=== PATIENT | female | born 1980 | race Caucasian/White ===

== ENCOUNTER → 2016-06-11 | Day surgery (SDC) | payer OTHER ==
[2016-05-10 08:22] VITALS: Ht 162.6 cm; Wt 61.4 kg
[~2016-06-11] VITALS: Ht 162.6 cm; Wt 61.4 kg
[~2016-06-11] MED LIST: DIAZ-165 PO; FAMO20TA9 PO; LIDOCAINE HCL 2% 2 ML VIAL (20MG/ML) ONE; MIDAZOLAM HCL 1 MG/ML 2ML VIAL ONE; OMEP20CA9 PO; ONDANSETRON INJ 2 MG/ML 2 ML VIAL ONE; OXYC-57 PO; PRLSR20 PO; PROPOFOL IV EMULSION 10 MG/ML 20 ML VIAL IV ONE; SODIUM CHLORIDE 0.9% 500ML 500 ML IV ONE
--- NOTE | 2016-06-11 13:08 | Endo History and Physical ---
History & Physical Date of Service: Jun 11, 2016. Chief Complaint: Ab discomfort Referring Physician: Dr Alegria History of Present Illness 36 yo CF who presents for EGD secondary to abdominal discomfort. Past Surgical History Hx Cardiac Surgery: No Hx Internal Defibrillator: No Hx Pacemaker: No Hx Abdominal Surgery: Yes (TUBAL LIGATIONS) Hx Post-Op Nausea and Vomiting: No Hx Cancer Surgery: No Hx Thoracic Surgery: No Hx Orthopedic: No Hx Urinary Tract Surgery: No Social History Smoking Status: Never Smoker Hx Substance Use: No Hx Alcohol Use: Yes (SOCIALLY) Allergies Coded Allergies: Reyes (Verified Allergy, Unknown, HIVES, BREATHING PROBLEMS, 05/10/16) Naproxen (Verified Allergy, Unknown, DIFFICULTY BREATHING, 05/10/16) Current Medications Reported Home Medications Medications Dose Route/Sig Max Daily Dose Days Date Category Prilosec (Omeprazole) 20 Mg Capcr 20 Mg PO BID 05/10/16 Reported Vital Signs Weight (Kilograms): 61.36 Height (Feet): 5 Height (Inches): 4 Date Time Temp Pulse Resp B/P Pulse Ox O2 Delivery O2 Flow Rate FiO2 06/11/16 12:00 36.7 67 16 103/61 100 Room Air Physical Exam General Appearance: WD/WN, no apparent distress Respiratory/Chest: Auscultation: breath sounds normal Cardiovascular: Heart Auscultation: RRR Abdomen: Bowel Sounds: normal Inspection & Palpation: soft, non-distended, no tenderness, guarding & rebound Assessment and Plan Assessment: 36 yo CF who presents for EGD secondary to abdominal discomfort. Plan: Proceed with EGD.
--- NOTE | 2016-06-11 13:20 | Discharge Instructions ---
Endoscopy Patient Instructions Date / Procedure(s) Performed Jun 11, 2016. EGD Allergy Information Coded Allergies: Reyes (Verified Allergy, Unknown, HIVES, BREATHING PROBLEMS, 05/10/16) Naproxen (Verified Allergy, Unknown, DIFFICULTY BREATHING, 05/10/16) Discharge Date / Findings Jun 11, 2016. Gastritis s/p biopsies Medication Instructions OK to resume all medications today as prescribed Reported Home Medications Medications Dose Route/Sig Max Daily Dose Days Date Category Prilosec (Omeprazole) 20 Mg Capcr 20 Mg PO BID 05/10/16 Reported Provider Instructions Activity Restrictions - No exercising or heavy lifting for 24 hours. - Do not drink alcohol the day of the procedure. - Do not drive a car or operate machinery until the day after the procedure. - Do not make any important decisions or sign important papers in 24 hours after the procedure. Following Day: - Return to full activity which may include returning to work/school. Diet Start your diet with liquids and light foods (jello, soup, juice, toast). Then eat your usual diet if not nauseated. Treatment For Common After Affects For mild abdominal pain, bloating, or excessive gas: - Rest - Eat lightly - Lie on right side Follow-Up Information Follow-up with Dr Alegria as scheduled Anesthesia Information What You Should Know You have had a procedure that required some medicine to reduce anxiety and discomfort. This treatment is called moderate sedation. After receiving the treatment, you may be sleepy, but you will be able to breathe on your own. The effects of the treatment may last for several hours. Follow these instructions along with Activity/Diet recommendations noted above: * Do NOT do anything where dizziness or clumsiness would be dangerous. * Rest quietly at home today, then you can be up and about tomorrow. * Have a responsible person stay with you the rest of today. * You may have had an I.V. today. If so, you may take the dressing off later today. Recommendations Call your doctor if: * Trouble breathing * Continuous vomiting for more than 24 hours * Temperature above 101 degrees * Severe abdominal pain or bloating * Pain not relieved by pain medicine ordered * There is increased drainage or redness from any incision * A large amount of rectal bleeding greater than 2-3 tablespoons. (If you had a polyp/s removed or have hemorrhoids, a small amount of blood - from the rectum is to be expected.) * You have any unanswered questions or concerns. IN THE EVENT OF A SERIOUS EMERGENCY, GO TO THE NEAREST EMERGENCY ROOM Your discharge instructions were prepared by provider Adam Paniagua. Patient Instructions Signature Page Maria D Marquis Patient (or Guardian) Signature/Date: I have read and understand the instructions given to me by my caregivers. Caregiver/RN/Doctor Signature/Date: The above-named patient and/or guardian has received patient instructions on this date. + Original Patient Signature Page (only) stays with chart. Please make copy for patient.
--- NOTE | 2016-06-11 13:27 | GI REPORT ---
Procedure Date: 06/11/2016 12:56 PM Procedure: Upper GI endoscopy Indications: Epigastric abdominal pain Medicines: Monitored Anesthesia Care Complications: No immediate complications. Estimated Blood Loss: Estimated blood loss: none. Procedure: Pre-Anesthesia Assessment: - Prior to the procedure, a History and Physical was performed, and patient medications and allergies were reviewed. The patient's tolerance of previous anesthesia was also reviewed. The risks and benefits of the procedure and the sedation options and risks were discussed with the patient. All questions were answered, and informed consent was obtained. Prior Anticoagulants: The patient has taken no previous anticoagulant or antiplatelet agents. ASA Grade Assessment: II - A patient with mild systemic disease. After reviewing the risks and benefits, the patient was deemed in satisfactory condition to undergo the procedure. After obtaining informed consent, the endoscope was passed under direct vision. Throughout the procedure, the patient's blood pressure, pulse, and oxygen saturations were monitored continuously. The scope was introduced through the mouth, and advanced to the second part of duodenum. The upper GI endoscopy was accomplished without difficulty. The patient tolerated the procedure well. The upper GI endoscopy was accomplished without difficulty. The patient tolerated the procedure well. Findings: The esophagus was normal. Localized mild inflammation characterized by erythema was found in the gastric antrum. Biopsies were taken with a cold forceps for histology. The examined duodenum was normal. Impression: - Normal esophagus. - Gastritis. Biopsied. - Normal examined duodenum. Recommendation: - Resume previous diet. - Continue present medications. - Await pathology results. - Return to primary care physician as previously scheduled. Adam Paniagua DO 06/11/2016 1:26:15 PM This report has been signed electronically. Note Initiated On: 06/11/2016 12:56 PM I attest to the content of the Intraoperative Record and orders documented therein, exceptions below
--- NOTE | 2016-06-11 14:04 | Anesthesiology Progress Note ---
Anesthesia Post Op Note Date & Time Jun 11, 2016 at 14:03 Vital Signs Pain Intensity: 0 Vital Signs Past 12 Hours Date Time Temp Pulse Resp B/P Pulse Ox O2 Delivery O2 Flow Rate FiO2 06/11/16 13:36 61 16 102/57 100 Room Air 06/11/16 13:21 65 16 115/60 100 Room Air 06/11/16 12:00 36.7 67 16 103/61 100 Room Air Notes Mental Status: alert / awake / arousable, participated in evaluation Pt Amnestic to Procedure: Yes Nausea / Vomiting: adequately controlled Pain: adequately controlled Airway Patency, RR, SpO2: stable & adequate BP & HR: stable & adequate Hydration State: stable & adequate Anesthetic Complications: no major complications apparent
[2016-06-11 14:09] VITALS: BP 104/76; PULSE 70; O2SAT 98
== END | disposition home or self-care (01) ==
LOC: C.GI 11:19
PROVIDERS: ATTEND Internal Medicine
DX: R10.13 Epigastric pain (principal); K29.70 Gastritis, unspecified, without bleeding

== ENCOUNTER 2016-11-16 18:27 | Emergency (ER) | payer OTHER ==
[~2016-11-16] VITALS: Ht 162.6 cm; Wt 62.3 kg
[~2016-11-16 18:27] MED LIST changes: -DIAZ-165 PO; -FAMO20TA9 PO; -LIDOCAINE HCL 2% 2 ML VIAL (20MG/ML) ONE; -MIDAZOLAM HCL 1 MG/ML 2ML VIAL ONE; -OMEP20CA9 PO; -ONDANSETRON INJ 2 MG/ML 2 ML VIAL ONE; -OXYC-57 PO; -PROPOFOL IV EMULSION 10 MG/ML 20 ML VIAL IV ONE; -SODIUM CHLORIDE 0.9% 500ML 500 ML IV ONE
[2016-11-16 18:29] VITALS: TEMP 36.6; Ht 162.6 cm; Wt 62.3 kg
--- NOTE | 2016-11-16 19:16 | EMERGENCY ROOM VISIT NOTE ---
History Report prepared by Rebecca: Sivan Vidal Under the Supervision of: Eliza MeraO. First contact with patient: 18:47 Chief Complaint: DIZZY Stated Complaint: DIZZY History of Present Illness The patient is a 36 year old female who presents to the Emergency Room with complaints of worsening dizziness beginning today. Per per diem interpreter, the patient also reports having blurry vision, diaphoresis, and that the top of her head is burning. She also complains of intermittent chest pain which feels like heartburn. She reports that she has had several episodes with these symptoms over the last few months. The patient reports that she has these symptoms when she starts to drive for more than 10 minutes. The symptoms last for the duration of car rides and she reports that she is fine when the drive is over. She states that she feels as if she is in a daydream, but that she is not tired. The patient also reports having headaches and that she has anxiety. She reports having a tingly sensation in her left eye. Pt denies fevers, shortness of breath, nausea, vomiting, diarrhea, pain with urination, and melena. No hx of migraines. No hx of trauma. Source of History: patient Onset: today Position: other (global) Quality: other (dizziness) Associated Symptoms: + headache, + chest pain, No fevers, No SOB, No nausea , No vomiting, No melena, No diarrhea, No urinary symptoms Note: additional symptom: tingling in left eye Review of Systems See HPI for pertinent positives & negatives. A total of 10 systems reviewed and were otherwise negative. Past Medical & Surgical Medical Problems: (1) Deaf (2) Kidney stones Family History Kidney disease Social History Smoking Status: Never Smoker Alcohol Use: none Marital Status: in relationship Housing Status: lives with family Occupation Status: unemployed Current/Historical Medications No Active Prescriptions or Reported Meds Allergies Coded Allergies: Reyes (Verified Allergy, Unknown, HIVES, BREATHING PROBLEMS, 11/16/16) Naproxen (Verified Allergy, Unknown, DIFFICULTY BREATHING, 11/16/16) Physical Exam Vital Signs Date Time Temp Pulse Resp B/P (MAP) Pulse Ox O2 Delivery O2 Flow Rate FiO2 11/16/16 23:12 64 15 109/65 100 11/16/16 22:14 67 15 121/61 97 Room Air 11/16/16 20:59 53 19 116/73 98 Room Air 11/16/16 20:33 63 11/16/16 18:29 36.6 77 16 131/78 98 Room Air Physical Exam GENERAL: alert, well appearing, well nourished, no distress, non-toxic. Deaf. EYE EXAM: normal conjunctiva, PERRL and EOM's grossly intact OROPHARYNX: no exudate, no erythema, lips, buccal mucosa, and tongue normal and mucous membranes are moist NECK: supple, no nuchal rigidity, no adenopathy, non-tender, no bruits LUNGS: Clear to auscultation. Normal chest wall mechanics. no w/r/r HEART: no murmurs, S1 normal and S2 normal ABDOMEN: abdomen soft, non-tender, normo-active bowel sounds, no masses, no rebound or guarding. BACK: Back is symmetrical on inspection and there is no deformity, no midline tenderness, no CVA tenderness. SKIN: no rashes and no bruising UPPER EXTREMITIES: upper extremities are grossly normal. LOWER EXTREMITIES: No pitting edema. NEURO EXAM: Normal sensorium, cranial nerves II-XII [grossly] intact, normal speech, no [gross] weakness of arms, no [gross] weakness of legs. [No drift. Finger to nose intact. Gross sensation intact.] Medical Decision & Procedures ER Provider Diagnostic Interpretation: Radiology results have been interpreted by the radiologist and reviewed by me. ANGIOGRAPHY HEAD COMBO CLINICAL HISTORY: 36 years-old Female presenting with dizzy, blurred vision mild driving. TECHNIQUE: Multidetector CT angiography of the head was performed after the administration of intravenous contrast. 3-D volumetric and/or maximum intensity projection (MIP) images were subsequently reconstructed for review. IV contrast: 95 mL of Optiray 320. A dose lowering technique was used consistent with the principles of ALARA (as low as reasonably achievable). COMPARISON: None. CT DOSE (mGy.cm): The estimated cumulative dose is 720.55 mGy.cm. FINDINGS: Nitro Worker topogram: Unremarkable. Noncontrast CT head: Ventricles and sulci normal in size. Brain parenchyma normal in appearance with preserved merida-white differentiation. No mass effect or midline shift. No hemorrhage or acute territorial infarct. No extra-axial fluid collection. Paranasal sinuses and mastoid air cells clear. Calvarium intact. CTA head: Anterior circulation including the intracranial portions of the internal carotid arteries, middle and anterior cerebral arteries, and anterior communicating artery patent. Posterior circulation demonstrates codominant vertebral arteries. Basilar artery and bilateral superior cerebellar and posterior cerebral arteries patent. Posterior communicating arteries poorly visualized. No evidence of aneurysm, stenosis, or focal vessel occlusion. Venous structures patent. IMPRESSION: 1. No acute intracranial pathology. 2. No evidence of intracranial aneurysm, stenosis, or focal vessel occlusion. 3. Electronically signed by: Yong Lizarraga M.D. 11/16/2016 9:00 PM Dictated Date/Time: 11/16/2016 8:54 PM CHEST ONE VIEW PORTABLE CLINICAL HISTORY: 36 years-old Female presenting with chest pain. TECHNIQUE: Portable upright AP view of the chest was obtained. COMPARISON: 12/22/2013. FINDINGS: Cardiomediastinal silhouette normal. Lungs and pleural spaces clear. Osseous structures normal. Upper abdomen normal. IMPRESSION: 1. No acute cardiopulmonary disease. Electronically signed by: Yong Lizarraga M.D. 11/16/2016 8:02 PM Dictated Date/Time: 11/16/2016 8:01 PM Laboratory Results 11/16/16 19:40 Red Blood Count 4.30, Mean Corpuscular Volume 92.3, Mean Corpuscular Hemoglobin 29.3, Mean Corpuscular Hemoglobin Concent 31.7, Mean Platelet Volume 9.8, Neutrophils (%) (Auto) 56.3, Lymphocytes (%) (Auto) 37.3, Monocytes (%) (Auto) 5.0, Eosinophils (%) (Auto) 1.0, Basophils (%) (Auto) 0.2, Neutrophils # (Auto) 5.05, Lymphocytes # (Auto) 3.35, Monocytes # (Auto) 0.45, Eosinophils # (Auto) 0.09, Basophils # (Auto) 0.02 11/16/16 19:40 Test 11/16/16 19:40 11/16/16 21:15 White Blood Count 8.98 K/uL (4.8-10.8) Red Blood Count 4.30 M/uL (4.2-5.4) Hemoglobin 12.6 g/dL (12.0-16.0) Hematocrit 39.7 % (37-47) Mean Corpuscular Volume 92.3 fL (80-100) Mean Corpuscular Hemoglobin 29.3 pg (25-34) Mean Corpuscular Hemoglobin Concent 31.7 g/dl (32-36) Platelet Count 262 K/uL (130-400) Mean Platelet Volume 9.8 fL (7.4-10.4) Neutrophils (%) (Auto) 56.3 % Lymphocytes (%) (Auto) 37.3 % Monocytes (%) (Auto) 5.0 % Eosinophils (%) (Auto) 1.0 % Basophils (%) (Auto) 0.2 % Neutrophils # (Auto) 5.05 K/uL (1.4-6.5) Lymphocytes # (Auto) 3.35 K/uL (1.2-3.4) Monocytes # (Auto) 0.45 K/uL (0.11-0.59) Eosinophils # (Auto) 0.09 K/uL (0-0.5) Basophils # (Auto) 0.02 K/uL (0-0.2) RDW Standard Deviation 44.6 fL (36.4-46.3) RDW Coefficient of Variation 13.3 % (11.5-14.5) Immature Granulocyte % (Auto) 0.2 % Immature Granulocyte # (Auto) 0.02 K/uL (0.00-0.02) Prothrombin Time 10.6 SECONDS (9.0-12.0) Prothromb Time International Ratio 1.0 (0.9-1.1) Anion Gap 5.0 mmol/L (3-11) Est Creatinine Clear Calc Drug Dose 82.7 ml/min Estimated GFR () 107.5 Estimated GFR (Non- 92.7 BUN/Creatinine Ratio 20.9 (10-20) Calcium Level 8.6 mg/dl (8.5-10.1) Magnesium Level 2.3 mg/dl (1.8-2.4) Total Bilirubin 0.3 mg/dl (0.2-1) Aspartate Amino Transf (AST/SGOT) 15 U/L (15-37) Alanine Aminotransferase (ALT/SGPT) 23 U/L (12-78) Alkaline Phosphatase 44 U/L (45-117) Troponin I < 0.015 ng/ml (0-0.045) Total Protein 6.9 gm/dl (6.4-8.2) Albumin 3.6 gm/dl (3.4-5.0) Globulin 3.3 gm/dl (2.5-4.0) Albumin/Globulin Ratio 1.1 (0.9-2) Thyroid Stimulating Hormone (TSH) 4.470 uIu/ml (0.300-4.500) Human Chorionic Gonadotropin, Qual NEG (NEG) Urine Color YELLOW Urine Appearance CLEAR (CLEAR) Urine pH 6.0 (4.5-7.5) Urine Specific [place]far[place] 1.031 (1.000-1.030) Urine Protein NEG (NEG) Urine Glucose (UA) NEG (NEG) Urine Ketones NEG (NEG) Urine Occult Blood NEG (NEG) Urine Nitrite NEG (NEG) Urine Bilirubin NEG (NEG) Urine Urobilinogen NEG (NEG) Urine Leukocyte Esterase NEG (NEG) Laboratory results per my review. Medications Administered Medications (Trade) Dose Ordered Sig/Zelda Route Start Time Stop Time Status Last Admin Dose Admin Al Hydroxide/Mg Hydroxide (Maalox Susp) 30 ml NOW STAT PO 11/16/16 19:33 11/16/16 19:36 DC 11/16/16 20:11 30 ML Famotidine (Pepcid Tab) 20 mg NOW ONCE PO 11/16/16 21:45 11/16/16 21:46 DC 11/16/16 22:10 20 MG Acetaminophen (Tylenol Tab) 650 mg NOW STAT PO 11/16/16 21:40 11/16/16 21:42 DC 11/16/16 22:10 650 MG ECG Indication: chest pain Rate (beats per minute): 63 Rhythm: sinus rhythm Findings: no acute ischemic change, other (normal axis, normal intervals, baseline aftifact) Change: no significant change ED Course 1899: The patient was evaluated in room B6. A complete history and physical exam was performed. 1932: Ordered Maalox Susp 30 ml PO. 2129: I went over the results with the patient and she reports that she is still having chest discomfort. 2139: Ordered Tylenol Tab 650 mg PO. 2144: Ordered Famotidine 20 mg PO. 0: Upon reevaluation, the patient is feeling better. I discussed the findings and the treatment plan with the patient. She verbalizes agreement and understanding. She was discharged home. Medical Decision Differential diagnosis: Etiologies such as benign positional vertigo, dehydration, hypovolemia, anemia, tumor, infection, hypoglycemia, electrolyte abnormalities, cardiac sources, intracerebral event, toxicologic, neurologic, as well as others were entertained. Pt well appearing here without symptoms. Labs and imaging reassuring. Discussed with pt f/u with pcp and possibly neurology if sx continue to recur. VS stable. Doubt cva, sah, dissection, dysrhythmia, acs, occult infection, CVS thrombus. Medication Reconcilliation Current Medication List: was personally reviewed by me Blood Pressure Screening Patient's blood pressure: Normal blood pressure Impression Primary Impression: Dizziness Additional Impressions: Chest pain Headache Anxiety Scribe Attestation The scribe's documentation has been prepared under my direction and personally reviewed by me in its entirety. I confirm that the note above accurately reflects all work, treatment, procedures, and medical decision making performed by me. Departure Information Dispostion Home / Self-Care Prescriptions No Active Prescriptions or Reported Meds Referrals No Doctor, Assigned (PCP) Forms HOME CARE DOCUMENTATION FORM, IMPORTANT VISIT INFORMATION Patient Instructions My [facility] Additional Instructions Please follow up with your family doctor next week. Please try to drink more water and stay hydrated. If you have any recurrent episodes, develop worsening or persistent headaches, dizziness, vision changes, worsening or persistent chest pain, vomiting, fevers, trouble breathing, or have any other new concerns , please return the emergency room. Problem Qualifiers Additional Impressions: Chest pain Chest pain type: unspecified Qualified Codes: R07.9 - Chest pain, unspecified Headache Headache type: unspecified Headache chronicity pattern: episodic headache Intractability: not intractable Qualified Codes: R51 - Headache
[2016-11-16] MEDS ORDERED: ALUMINUM/MAGNESIUM SUSP 30 ML UDC PO STA (19:33)
[2016-11-16] MEDS ORDERED: OPTIRAY 320 IV PRN (19:45)
[2016-11-16 20:03] LABS: BASO % 0.2 %; BASO ABS # 0.02 K/uL (0-0.2); COMPLETE YES; HEMATOCRIT 39.7 % (37-47); IG% 0.2 %; LYMPH % 37.3 %; LYMPH ABS # 3.35 K/uL (1.2-3.4); MEAN CELL VOLUME 92.3 fL (80-100); MEAN CORPUSCULAR HEMOGLOBIN 29.3 pg (25-34); MEAN CORPUSCULAR HGB CONC 31.7 g/dl (32-36); MEAN PLATELET VOLUME 9.8 fL (7.4-10.4); NEUT % 56.3 %; PLATELET COUNT 262 K/uL (130-400); WHITE BLOOD COUNT 8.98 K/uL (4.8-10.8)
--- NOTE | 2016-11-16 20:03 | DIAGNOSTIC IMAGING REPORT ---
CHEST ONE VIEW PORTABLE CLINICAL HISTORY: 36 years-old Female presenting with chest pain. TECHNIQUE: Portable upright AP view of the chest was obtained. COMPARISON: 12/22/2013. FINDINGS: Cardiomediastinal silhouette normal. Lungs and pleural spaces clear. Osseous structures normal. Upper abdomen normal. IMPRESSION: 1. No acute cardiopulmonary disease. Electronically signed by: Yong Lizarraga M.D. 11/16/2016 8:02 PM Dictated Date/Time: 11/16/2016 8:01 PM
[2016-11-16 20:14] LABS: PROTHROMBIN TIME (PATIENT) 10.6 SECONDS (9.0-12.0)
[2016-11-16 20:15] LABS: ALT/SGPT 23 U/L (12-78); AST/SGOT 15 U/L (15-37); BLOOD UREA NITROGEN 17 mg/dl (7-18); BUN/CREATININE RATIO 20.9 (10-20); CALCIUM 8.6 mg/dl (8.5-10.1); CARBON DIOXIDE 28 mmol/L (21-32); CHLORIDE 106 mmol/L (98-107); CREATININE 0.82 mg/dl (0.60-1.20); GLUCOSE 80 mg/dl (70-99); MAGNESIUM 2.3 mg/dl (1.8-2.4); SODIUM 139 mmol/L (136-145)
[2016-11-16 20:26] LABS: ALB/GLOB RATIO 1.1 (0.9-2); ALKALINE PHOSPHATASE 44 U/L (45-117)
[2016-11-16 20:36] LABS: PREG INTERNAL NEGATIVE QC NEG CLEAR BACKGROUND; PREG INTERNAL POSITIVE QC POS CONTROL LINE
--- NOTE | 2016-11-16 21:02 | DIAGNOSTIC IMAGING REPORT ---
ANGIOGRAPHY HEAD COMBO CLINICAL HISTORY: 36 years-old Female presenting with dizzy, blurred vision mild driving. TECHNIQUE: Multidetector CT angiography of the head was performed after the administration of intravenous contrast. 3-D volumetric and/or maximum intensity projection (MIP) images were subsequently reconstructed for review. IV contrast: 95 mL of Optiray 320. A dose lowering technique was used consistent with the principles of ALARA (as low as reasonably achievable). COMPARISON: None. CT DOSE (mGy.cm): The estimated cumulative dose is 720.55 mGy.cm. FINDINGS: Warehouse Analyst topogram: Unremarkable. Noncontrast CT head: Ventricles and sulci normal in size. Brain parenchyma normal in appearance with preserved merida-white differentiation. No mass effect or midline shift. No hemorrhage or acute territorial infarct. No extra-axial fluid collection. Paranasal sinuses and mastoid air cells clear. Calvarium intact. CTA head: Anterior circulation including the intracranial portions of the internal carotid arteries, middle and anterior cerebral arteries, and anterior communicating artery patent. Posterior circulation demonstrates codominant vertebral arteries. Basilar artery and bilateral superior cerebellar and posterior cerebral arteries patent. Posterior communicating arteries poorly visualized. No evidence of aneurysm, stenosis, or focal vessel occlusion. Venous structures patent. IMPRESSION: 1. No acute intracranial pathology. 2. No evidence of intracranial aneurysm, stenosis, or focal vessel occlusion. 3. Electronically signed by: Yong Lizarraga M.D. 11/16/2016 9:00 PM Dictated Date/Time: 11/16/2016 8:54 PM
[2016-11-16 21:26] LABS: URINE APPEARANCE CLEAR (CLEAR); URINE BILIRUBIN NEG (NEG); URINE COLOR YELLOW; URINE NITRITE NEG (NEG); URINE SPECIFIC GRAVITY 1.031 (1.000-1.030); UROBILINOGEN NEG (NEG); ZZUR CULT IF INDIC CLEAN CATCH NO
[2016-11-16 21:38] LABS: MANUAL MICROSCOPIC REQUIRED? NO; REVIEW REQ? NO
[2016-11-16] MEDS ORDERED: ACETAMINOPHEN 325 MG TAB PO STA (21:40)
[2016-11-16] MEDS ORDERED: FAMOTIDINE 20 MG TAB PO ONE (21:45)
[2016-11-16 23:12] VITALS: BP 109/65; PULSE 64; O2SAT 100
== END 2016-11-16 23:08 | disposition home or self-care (01) ==
LOC: C.EDB 18:29
DX: R42 Dizziness and giddiness (principal); R07.9 Chest pain, unspecified; R51 Headache; F41.9 Anxiety disorder, unspecified; H91.90 Unspecified hearing loss, unspecified ear; Z87.442 Personal history of urinary calculi; Z84.1 Family history of disorders of kidney and ureter

== ENCOUNTER → 2016-12-18 | Outpatient (CLI) | payer OTHER ==
--- NOTE | 2016-12-19 23:45 | PULMONARY FUNCTION TEST ---
Spirometry is within the limits of normal. Flow volume loops are normal. Following bronchodilators, there was no significant change in function. Lung volumes showed a decrease in residual volume with low normal FRC and TLC. Diffusion is normal at 103% of predicted.
== END | disposition home or self-care (01) ==
LOC: C.RC 12:41
PROVIDERS: ATTEND Physician Assistant
DX: R06.02 Shortness of breath (principal)

== ENCOUNTER 2017-01-15 06:25 | Emergency (ER) | payer OTHER ==
[~2017-01-15] VITALS: Ht 162.6 cm; Wt 62.0 kg
[2017-01-15] MEDS ORDERED: OXYC-57 PO ×2 (06:38)
[2017-01-15] MEDS ORDERED: OMEP20CA9 PO (06:38)
[2017-01-15] MEDS ORDERED: GI COCKTAIL PO STA (06:44)
[2017-01-15] MEDS ORDERED: ONDANSETRON INJ 2 MG/ML 2 ML VIAL IV STA (06:44)
[2017-01-15] MEDS ORDERED: FAMOTIDINE 20 MG TAB PO ONE (06:45)
--- NOTE | 2017-01-15 06:45 | EMERGENCY ROOM VISIT NOTE ---
History Report prepared by Rebecca: Quin Dubois Under the Supervision of: Dr. Juan Elder M.D. First contact with patient: 06:29 Chief Complaint: SHORTNESS OF BREATH Stated Complaint: SHORT OF BREATH History of Present Illness The patient is a 37 year old white female with a past medical history of deafness who presents to the ED with a cc of persistent, central, burning chest pain beginning this morning. Positive shortness of breath, nausea. Negative swelling in lower extremities, vomiting. The patient states that she had cochlear implants on Saturday and states that surgery went well. She states that she developed chest pain this morning and shortness of breath. The patient reports constipation from the oxycodone she was prescribed. She notes abdominal pain as well. The patient states that she has been passing gas from below and burping. She states that she has tried a stool softener. The patient states that she has taken Omeprazole without relief. She denies any alcohol or tobacco use. The patient denies being on any supplemental oxygen at home. She denies any history of blood clots. Source of History: patient Onset: this morning Position: chest (central) Quality: burning Timing: other (persistent) Associated Symptoms: + SOB, + nausea, + abdominal pain, No vomiting Note: Associated symptoms: constipation Review of Systems See HPI for pertinent positives and negatives. A total of ten systems were reviewed and were otherwise negative. Past Medical & Surgical Medical Problems: (1) Deaf (2) Kidney stones Family History Kidney disease Social History Smoking Status: Never Smoker Alcohol Use: none Marital Status: in relationship Housing Status: lives with family Occupation Status: unemployed Current/Historical Medications Scheduled Omeprazole (Prilosec), 20 MG PO QPM Scheduled PRN Diazepam (Valium), 5 MG PO Q6H PRN for Anxiety/Agitation Oxycodone/Acetaminophen 5MG/325MG (Percocet 5MG/325MG), 1 TABLETS PO Q4H PRN for Pain Allergies Coded Allergies: Reyes (Verified Allergy, Unknown, HIVES, BREATHING PROBLEMS, 01/15/17) Naproxen (Verified Allergy, Unknown, DIFFICULTY BREATHING, 01/15/17) Physical Exam Vital Signs Date Time Temp Pulse Resp B/P (MAP) Pulse Ox O2 Delivery O2 Flow Rate FiO2 01/15/17 12:08 87 20 114/64 99 01/15/17 10:28 83 20 131/75 99 11/14/17 08:38 78 16 116/69 01/15/17 07:37 70 20 121/75 98 Room Air 01/15/17 06:49 66 01/15/17 06:46 Room Air 01/15/17 06:46 37.1 84 18 117/84 98 Room Air 01/15/17 06:46 Room Air Physical Exam GENERAL: Awake, alert, well-appearing, NAD HENT: Normocephalic, atraumatic. Cochlear implanted placed behind the right ear EYES: Normal conjunctiva. Sclera non-icteric. NECK: Supple. No nuchal rigidity. FROM. RESPIRATORY: CTAB, no rhonchi, wheezing, crackles CARDIAC: RRR, no MRG ABDOMEN: Soft, NTND, BS+ MSK: No chest wall TTP, no LE edema, erythema or calf pain NEURO: GCS 15, CN 2-12 intact, moves all 4s on command SKIN: No rash or jaundice noted. Medical Decision & Procedures ER Provider Diagnostic Interpretation: X-ray: Per my interpretation, radiologist review. CHEST ONE VIEW PORTABLE HISTORY: 37 years-old Female CHEST PAIN acute atypical chest pain COMPARISON: Chest radiograph 11/16/2016 TECHNIQUE: Portable upright AP view of the chest FINDINGS: Cardiomediastinal and hilar silhouettes are within normal limits. There is no pneumothorax, pleural effusion, focal airspace consolidation or overt pulmonary edema. The bones of the chest are grossly intact. IMPRESSION: No acute cardiopulmonary process. The above report was generated using voice recognition software. It may contain grammatical, syntax or spelling errors. Electronically signed by: Jasper Stallworth M.D. 01/15/2017 7:07 AM Dictated Date/Time: 01/15/2017 7:[address] CT DOSE: 614.27 mGy.cm HISTORY: ?seizure TECHNIQUE: Multiaxial CT images of the head were performed without the use of intravenous contrast. Automated exposure control was utilized for this study. A dose lowering technique was utilized adhering to the principles of ALARA. Comparison: None. Findings: Paranasal sinuses are clear. Right-sided cochlear implant. Small amount of soft tissue gas in the scalp adjacent to the clear implant which suggests recent postoperative change. A few partially opacified right inferior mastoid air cells. The left mastoid air cells are clear. No calvarial fractures. Suboptimal evaluation of the brain due to the metallic artifact from the right-sided cochlear implant. However, there is no definite mass, hematoma, midline shift, acute infarct. The ventricles are normal in size. Impression: 1. Suboptimal evaluation of the brain due to the metallic artifact from the right-sided cochlear implant. However, no definite acute intracranial abnormality. 2. Small amount of gas within the scalp adjacent to the cochlear implant with suggests recent postoperative change. Electronically signed by: Magnus Lei M.D. 01/15/2017 8:51 AM Dictated Date/Time: 01/15/2017 8:47 AM (CHEST FOR PE) ANGIO WITH CT DOSE: 139.22 mGy.cm HISTORY: 37 years-old Female presents with acute chest pain and shortness of breath. TECHNIQUE: Multiple CTA images of the chest were obtained after the intravenous administration of 89 ml Optiray 320. Coronal and sagittal MIPS were obtained from the axial data set and were submitted for review. A dose lowering technique was utilized adhering to the principles of ALARA. COMPARISON: CTA of the chest 12/22/2013. FINDINGS: CTA: Heart is normal in size without pericardial effusion. The thoracic aorta is normal in both course and caliber without aneurysm or dissection. Imaged great vessels appear patent. The pulmonary arterial tree is opacified to the level of the segmental branches. The subsegmental branches are not well seen secondary to respiratory motion. No focal filling defects identified to suggest pulmonary thromboembolic disease. CT CHEST: No dominant thyroid nodule. Minimal residual thymic tissue anterior mediastinum is noted. No pathologic adenopathy about the chest identified. There is no pneumothorax, pleural effusion, focal airspace consolidation or overt pulmonary edema. There is minimal dependent bibasilar atelectasis. Central airways are patent. No acute abnormality of the imaged upper abdomen. Soft tissues are unremarkable. The bones appear intact. IMPRESSION: 1. No acute intrathoracic abnormality, specifically no acute aortic pathology or evidence of pulmonary thromboembolic disease. 2. No lobar airspace consolidation to suggest pneumonia. The above report was generated using voice recognition software. It may contain grammatical, syntax or spelling errors. Electronically signed by: Jasper Stallworth M.D. 01/15/2017 9:23 AM Dictated Date/Time: 01/15/2017 9:18 AM Laboratory Results 01/15/17 07:10 Red Blood Count 4.66, Mean Corpuscular Volume 90.8, Mean Corpuscular Hemoglobin 30.5, Mean Corpuscular Hemoglobin Concent 33.6, Mean Platelet Volume 9.2, Neutrophils (%) (Auto) 79.7, Lymphocytes (%) (Auto) 14.6, Monocytes (%) (Auto) 5.3, Eosinophils (%) (Auto) 0.2, Basophils (%) (Auto) 0.1, Neutrophils # (Auto) 7.65, Lymphocytes # (Auto) 1.40, Monocytes # (Auto) 0.51, Eosinophils # (Auto) 0.02, Basophils # (Auto) 0.01 01/15/17 07:10 Test 01/15/17 07:10 White Blood Count 9.60 K/uL (4.8-10.8) Red Blood Count 4.66 M/uL (4.2-5.4) Hemoglobin 14.2 g/dL (12.0-16.0) Hematocrit 42.3 % (37-47) Mean Corpuscular Volume 90.8 fL (80-100) Mean Corpuscular Hemoglobin 30.5 pg (25-34) Mean Corpuscular Hemoglobin Concent 33.6 g/dl (32-36) Platelet Count 287 K/uL (130-400) Mean Platelet Volume 9.2 fL (7.4-10.4) Neutrophils (%) (Auto) 79.7 % Lymphocytes (%) (Auto) 14.6 % Monocytes (%) (Auto) 5.3 % Eosinophils (%) (Auto) 0.2 % Basophils (%) (Auto) 0.1 % Neutrophils # (Auto) 7.65 K/uL (1.4-6.5) Lymphocytes # (Auto) 1.40 K/uL (1.2-3.4) Monocytes # (Auto) 0.51 K/uL (0.11-0.59) Eosinophils # (Auto) 0.02 K/uL (0-0.5) Basophils # (Auto) 0.01 K/uL (0-0.2) RDW Standard Deviation 44.2 fL (36.4-46.3) RDW Coefficient of Variation 13.5 % (11.5-14.5) Immature Granulocyte % (Auto) 0.1 % Immature Granulocyte # (Auto) 0.01 K/uL (0.00-0.02) Prothrombin Time 10.7 SECONDS (9.0-12.0) Prothromb Time International Ratio 1.0 (0.9-1.1) Activated Partial Thromboplast Time 27.2 SECONDS (21.0-31.0) Partial Thromboplastin Ratio 1.0 D-Dimer 930 ug/L FEU (0-500) Anion Gap 9.0 mmol/L (3-11) Est Creatinine Clear Calc Drug Dose 85.1 ml/min Estimated GFR () 111.6 Estimated GFR (Non- 96.3 BUN/Creatinine Ratio 10.4 (10-20) Calcium Level 9.5 mg/dl (8.5-10.1) Total Bilirubin 0.7 mg/dl (0.2-1) Direct Bilirubin 0.2 mg/dl (0-0.2) Aspartate Amino Transf (AST/SGOT) 37 U/L (15-37) Alanine Aminotransferase (ALT/SGPT) 38 U/L (12-78) Alkaline Phosphatase 53 U/L (45-117) Troponin I < 0.015 ng/ml (0-0.045) Pro-B-Type Natriuretic Peptide 97 pg/ml (0-450) Total Protein 8.3 gm/dl (6.4-8.2) Albumin 4.2 gm/dl (3.4-5.0) Lipase 144 U/L (73-393) Laboratory results reviewed by me Medications Administered Medications (Trade) Dose Ordered Sig/Zelda Route Start Time Stop Time Status Last Admin Dose Admin Ondansetron HCl (Zofran Inj) 4 mg NOW STAT IV 01/15/17 06:44 01/15/17 06:46 DC 01/15/17 07:17 4 MG Famotidine (Pepcid Tab) 20 mg NOW ONCE PO 01/15/17 06:45 01/15/17 06:46 DC 01/15/17 07:14 20 MG Al Hydroxide/Mg Hydroxide (Maalox Susp) 30 ml STK-MED ONCE .ROUTE 01/15/17 07:06 01/15/17 07:07 DC 01/15/17 07:15 30 ML Lidocaine HCl (Viscous Lidocaine 2% Soln) 20 ml STK-MED ONCE .ROUTE 01/15/17 07:06 01/15/17 07:07 DC 01/15/17 07:15 20 ML Acetaminophen (Tylenol Tab) 1,000 mg NOW STAT PO 01/15/17 08:01 01/15/17 08:02 DC 01/15/17 08:11 1,000 MG Diazepam (Valium Tab) 5 mg NOW ONCE PO 01/15/17 10:15 01/15/17 10:16 DC 01/15/17 10:25 5 MG ECG Indication: chest pain, SOB/dyspnea Rate (beats per minute): 65 Rhythm: normal sinus Findings: LBBB, no ectopy, other (borderline wide QRS, T wave flattening in lead 3 and AVF, no other STS changes) Comparison ECG Date: November2016 Change: no significant change ED Course 0633: The patient was evaluated in room A2. A complete history and physical exam was performed. 0644: Ordered GI Cocktail 24 ml PO, Zofran Inj 4 mg IV, Pepcid Tab 20 mg PO. 0801: Per nursing staff, the patient is still experiencing a burning pain in her chest. Ordered Tylenol Tab 1000 mg PO. 1000: I reevaluated the patient and she is resting. I discussed the test results with her and I discussed the treatment plan. 1015: Ordered Valium Tab 5 mg PO. 1211: I reevaluated the patient and she is doing well. I discussed all the exam findings with her and I discussed the treatment plan. She verbalized complete understanding and agreement. She is ready to go home. Medical Decision Differential diagnosis: Etiologies such as cardiac ischemia, aortic dissection, pulmonary embolism, pneumonia, pneumothorax, musculoskeletal, infections, pericarditis, myocarditis , esophageal rupture, gastrointestinal, as well as others were entertained. The patient is a 37 year old white female with a past medical history of deafness who presents to the ED with a cc of persistent, central, burning chest pain beginning this morning. Patient was seen and evaluated at the bedside. Patient states that she has been having some intermittent chest pains been ongoing for about 2 days. Patient describes it as burning in quality is nonexertional in nature. Patient states that she has had some productive cough. She denies any fevers or chills or other infectious symptoms. Patient states she has been afraid to eat as this may make it worse. Patient denies any lower abdominal pain. Patient did have her recent cochlear implant procedure that was done at [facility] on Saturday. Patient states she has been up and ambulatory without issues. Patient does not use any oxygen at home. She denies any history of DVT or PE. Patient has no lower extremity swelling. Patient did have blood work, EKG, chest x-ray and d-dimer completed. Patient was also given symptomatic treatment with medications. Patient's EKG was unchanged from priors. It was nonischemic. Patient's blood work was fairly unremarkable. Patient did have a pulse score 1 inch a d-dimer was ordered. Patient d-dimer was elevated. A CTA of the chest rule out PE was ordered. Patient had a normal BNP and troponin. Patient was given an additional round of medicines to help with her discomfort. Patient CTA of the chest did not show any acute abnormality. Patient was informed of this findings at length. Patient states that she was feeling scared and didn't want to go home. We discussed that she would have try to ambulate here in addition to tried to take something by mouth. Patient was able to accomplish things that would be sufficient to perform her ADLs at home. Patient was able tolerate by mouth. Patient was given a prescription for home. Patient was feeling improved. Less likely ACS and given her improvement in her symptoms this may be related to some anxiety. Patient was deemed suitable for outpatient follow-up and treatment. Patient was given strict follow-up, discharge, and return precautions. All questions were answered. Patient was deemed suitable for outpatient follow-up at this time. Patient agreed with the plan of care and was safely discharged home. Medication Reconcilliation Current Medication List: was personally reviewed by me Impression Primary Impression: SOB (shortness of breath) Additional Impressions: Chest pain Anxiety Scribe Attestation The scribe's documentation has been prepared under my direction and personally reviewed by me in its entirety. I confirm that the note above accurately reflects all work, treatment, procedures, and medical decision making performed by me. Departure Information Dispostion Home / Self-Care Prescriptions Diazepam (Valium) 5 Mg Tab 5 MG PO Q6H Y for Anxiety/Agitation, #8 TAB Prov: Juan Elder M.D. 01/15/17 Referrals No Doctor, Assigned (PCP) Forms HOME CARE DOCUMENTATION FORM, IMPORTANT VISIT INFORMATION Patient Instructions ED Dyspnea Shortness of Breath, My [facility], Shortness of Breath Control Stress Additional Instructions Please return to the emergency department if you have worsening or recurrent symptoms not amenable to at-home treatment. Please call for a follow-up appointment with her primary care physician. Please take your medications as prescribed. If you have other concerns and/or complaints please feel free to also call your primary care physician's office or return the ED for further evaluation, management, and treatment. Please no longer use your oxycodone, especially if you take the valium as it can cause respiratory issues including not being able to breathe. Continue good hydration. You may take 600 mg Ibuprofen every 6 hours as needed for pain with food for no more than 2 consecutive days. You may take tylenol 1000 mg every 6 hours as needed for pain. You may take motrin and tylenol separately or at the same time. Take your medications as prescribed. You have been examined and treated today on an emergency basis only. This is not a substitute for, or an effort to provide, complete comprehensive medical care. It is impossible to recognize and treat all injuries or illnesses in a single emergency department visit. It is therefore important that you follow up closely with [facility], your PCP, and/or your specialist(s). Call as soon as possible for an appointment. Thank you for your time and consideration. I look forward to speaking with you again soon. Please don't hesitate to call us if you have any questions. Problem Qualifiers Additional Impressions: Chest pain Chest pain type: unspecified Qualified Codes: R07.9 - Chest pain, unspecified
[2017-01-15 06:46] VITALS: TEMP 37.1; Ht 162.6 cm; Wt 62.0 kg
[2017-01-15] MEDS ORDERED: ALUMINUM/MAGNESIUM SUSP 30 ML UDC ONE (07:06)
[2017-01-15] MEDS ORDERED: LIDOCAINE HCL 2% VISC SOLN 20 ML UDC ONE (07:06)
--- NOTE | 2017-01-15 07:08 | DIAGNOSTIC IMAGING REPORT ---
CHEST ONE VIEW PORTABLE HISTORY: 37 years-old Female CHEST PAIN acute atypical chest pain COMPARISON: Chest radiograph 11/16/2016 TECHNIQUE: Portable upright AP view of the chest FINDINGS: Cardiomediastinal and hilar silhouettes are within normal limits. There is no pneumothorax, pleural effusion, focal airspace consolidation or overt pulmonary edema. The bones of the chest are grossly intact. IMPRESSION: No acute cardiopulmonary process. The above report was generated using voice recognition software. It may contain grammatical, syntax or spelling errors. Electronically signed by: Jasper Stallworth M.D. 01/15/2017 7:07 AM Dictated Date/Time: 01/15/2017 7:06 AM
[2017-01-15 07:23] LABS: BASO % 0.1 %; BASO ABS # 0.01 K/uL (0-0.2); COMPLETE YES; EOS % 0.2 %; HEMATOCRIT 42.3 % (37-47); IG% 0.1 %; LYMPH % 14.6 %; MEAN CELL VOLUME 90.8 fL (80-100); MEAN CORPUSCULAR HEMOGLOBIN 30.5 pg (25-34); MEAN CORPUSCULAR HGB CONC 33.6 g/dl (32-36); MEAN PLATELET VOLUME 9.2 fL (7.4-10.4); MONO % 5.3 %; NEUT % 79.7 %; PLATELET COUNT 287 K/uL (130-400); RED BLOOD COUNT 4.66 M/uL (4.2-5.4)
[2017-01-15 07:43] LABS: ALT/SGPT 38 U/L (12-78); AST/SGOT 37 U/L (15-37); BLOOD UREA NITROGEN 8 mg/dl (7-18); BUN/CREATININE RATIO 10.4 (10-20); CALCIUM 9.5 mg/dl (8.5-10.1); CARBON DIOXIDE 28 mmol/L (21-32); CHLORIDE 103 mmol/L (98-107); CREATININE 0.79 mg/dl (0.60-1.20); GLUCOSE 85 mg/dl (70-99); POTASSIUM 3.7 mmol/L (3.5-5.1); SODIUM 140 mmol/L (136-145)
[2017-01-15 07:49] LABS: ALKALINE PHOSPHATASE 53 U/L (45-117)
[2017-01-15] MEDS ORDERED: ACETAMINOPHEN 500 MG TAB PO STA (08:01)
[2017-01-15 08:04] LABS: PROTHROMBIN TIME (PATIENT) 10.7 SECONDS (9.0-12.0)
[2017-01-15] MEDS ORDERED: OPTIRAY 320 IV PRN (08:30)
--- NOTE | 2017-01-15 09:21 | DIAGNOSTIC IMAGING REPORT ---
HEAD CT NONCONTRAST CT DOSE: 614.27 mGy.cm HISTORY: ?seizure TECHNIQUE: Multiaxial CT images of the head were performed without the use of intravenous contrast. Automated exposure control was utilized for this study. A dose lowering technique was utilized adhering to the principles of ALARA. Comparison: None. Findings: Paranasal sinuses are clear. Right-sided cochlear implant. Small amount of soft tissue gas in the scalp adjacent to the clear implant which suggests recent postoperative change. A few partially opacified right inferior mastoid air cells. The left mastoid air cells are clear. No calvarial fractures. Suboptimal evaluation of the brain due to the metallic artifact from the right-sided cochlear implant. However, there is no definite mass, hematoma, midline shift, acute infarct. The ventricles are normal in size. Impression: 1. Suboptimal evaluation of the brain due to the metallic artifact from the right-sided cochlear implant. However, no definite acute intracranial abnormality. 2. Small amount of gas within the scalp adjacent to the cochlear implant with suggests recent postoperative change. Electronically signed by: Magnus Lei M.D. 01/15/2017 8:51 AM Dictated Date/Time: 01/15/2017 8:47 AM
--- NOTE | 2017-01-15 09:24 | DIAGNOSTIC IMAGING REPORT ---
(CHEST FOR PE) ANGIO WITH CT DOSE: 139.22 mGy.cm HISTORY: 37 years-old Female presents with acute chest pain and shortness of breath. TECHNIQUE: Multiple CTA images of the chest were obtained after the intravenous administration of 89 ml Optiray 320. Coronal and sagittal MIPS were obtained from the axial data set and were submitted for review. A dose lowering technique was utilized adhering to the principles of ALARA. COMPARISON: CTA of the chest 12/22/2013. FINDINGS: CTA: Heart is normal in size without pericardial effusion. The thoracic aorta is normal in both course and caliber without aneurysm or dissection. Imaged great vessels appear patent. The pulmonary arterial tree is opacified to the level of the segmental branches. The subsegmental branches are not well seen secondary to respiratory motion. No focal filling defects identified to suggest pulmonary thromboembolic disease. CT CHEST: No dominant thyroid nodule. Minimal residual thymic tissue anterior mediastinum is noted. No pathologic adenopathy about the chest identified. There is no pneumothorax, pleural effusion, focal airspace consolidation or overt pulmonary edema. There is minimal dependent bibasilar atelectasis. Central airways are patent. No acute abnormality of the imaged upper abdomen. Soft tissues are unremarkable. The bones appear intact. IMPRESSION: 1. No acute intrathoracic abnormality, specifically no acute aortic pathology or evidence of pulmonary thromboembolic disease. 2. No lobar airspace consolidation to suggest pneumonia. The above report was generated using voice recognition software. It may contain grammatical, syntax or spelling errors. Electronically signed by: Jasper Stallworth M.D. 01/15/2017 9:23 AM Dictated Date/Time: 01/15/2017 9:18 AM
[2017-01-15] MEDS ORDERED: DIAZEPAM 5MG TAB PO ONE (10:15)
[2017-01-15] MEDS ORDERED: DIAZ-165 PO (12:06)
[2017-01-15 12:08] VITALS: BP 114/64; PULSE 87; O2SAT 99
== END 2017-01-15 12:21 | disposition home or self-care (01) ==
LOC: EDBD 06:25 → C.EDA 06:29
DX: R06.02 Shortness of breath (principal); R07.9 Chest pain, unspecified; F41.9 Anxiety disorder, unspecified; Z87.442 Personal history of urinary calculi; Z79.899 Other long term (current) drug therapy; Z88.8 Allergy status to other drugs, medicaments and biological substances; Z91.018 Allergy to other foods; Z82.49 Family history of ischemic heart disease and other diseases of the circulatory system

== ENCOUNTER 2017-02-05 10:04 | Emergency (ER) | payer OTHER ==
[~2017-02-05 10:04] MED LIST changes: +DIAZ-165 PO; +OMEP20CA9 PO; +OXYC-57 PO; -PRLSR20 PO
[2017-02-05 10:07] VITALS: TEMP 36.5
[2017-02-05] MEDS ORDERED: DiphenhydrAMINE HCL 50 MG/ML VIAL IV STA (11:05)
[2017-02-05] MEDS ORDERED: FAMOTIDINE 20MG/5ML IV PUSH IV STA (11:05)
[2017-02-05] MEDS ORDERED: GI COCKTAIL PO STA (11:05)
[2017-02-05] MEDS ORDERED: SODIUM CHLORIDE 0.9% 1000ML 1,000 ML IV STA (11:05)
[2017-02-05] MEDS ORDERED: ONDANSETRON INJ 2 MG/ML 2 ML VIAL IV STA (11:20)
[2017-02-05 11:25] VITALS: O2SAT 100
[2017-02-05] MEDS ORDERED: LIDOCAINE HCL 2% VISC SOLN 20 ML UDC ONE (11:36)
[2017-02-05] MEDS ORDERED: ALUMINUM/MAGNESIUM SUSP 30 ML UDC ONE (11:36)
[2017-02-05 11:43] LABS: BASO % 0.2 %; BASO ABS # 0.02 K/uL (0-0.2); COMPLETE YES; EOS % 0.5 %; HEMATOCRIT 39.8 % (37-47); IG% 0.2 %; LYMPH % 27.4 %; LYMPH ABS # 2.31 K/uL (1.2-3.4); MEAN CORPUSCULAR HEMOGLOBIN 30.5 pg (25-34); MEAN CORPUSCULAR HGB CONC 33.9 g/dl (32-36); MEAN PLATELET VOLUME 9.6 fL (7.4-10.4); MONO % 4.6 %; NEUT % 67.1 %; PLATELET COUNT 243 K/uL (130-400); RED BLOOD COUNT 4.42 M/uL (4.2-5.4); WHITE BLOOD COUNT 8.44 K/uL (4.8-10.8)
--- NOTE | 2017-02-05 11:45 | EMERGENCY ROOM VISIT NOTE ---
History Report prepared by Rebecca: Tess Barbosa Under the Supervision of: Dr. Alex Piper M.D. First contact with patient: 10:24 Chief Complaint: EAR PAIN Stated Complaint: RINGING EAR, NERVOUS, HEARTBURN History of Present Illness The patient is a 37 year old female with hearing impairment who presents to the Emergency Room with complaints of constant ringing in her left ear since her cochlear implant surgery in her right ear on January 11, 2017. An retail asset protection specialist was used to translate for the patient. She also notes a burning sensation in her epigastric region that radiates to both arms and neck, causing loss of sleep and numbness in arms bilaterally. She reports informing her PCP of her heartburn symptoms before the surgery, though the symptoms have worsened. Her PCP prescribed omeprazole, though it has not improved her symptoms. She stopped taking the medication after a week of use. She has also notified her ENT specialist of the ringing in her ear, noting that the ringing was normal s/p surgery, though she feels the ringing is abnormal for her. The ringing is primarily in her left ear, though radiates to her right ear. She notes the ear ringing has been constant since her surgery. She notes feeling nauseous, productive cough with sputum, shortness of breath, dizziness, though does not feel as if the room is spinning. She feels anxious, agitated, and unfocused. She notes that she cannot seem to focus her eyes. She notes having a left hearing aid since she was [age] years old and she has had to remove it due to the ringing. She does not know if the cochlear implant is causing the ringing in her ear. She states the ringing in her ear is "driving me crazy." She will see her ENT specialist tomorrow for a follow up. Lastly, she notes being prescribed vallum for anxiety, which caused her to be confused. She rates her pain a 3/10 in severity. Source of History: patient Onset: January 11, 2017 Position: ear (bilateral) Symptom Intensity: 3/10 Quality: other (ringing "driving me crazy") Timing: constant Associated Symptoms: + cough (productive cough with sputum), + SOB, + nausea , + abdominal pain (epigastric region), + numbness (arms bilaterally) Note: She notes ringing in her left ear, that radiates to her right ear. She notes loss of sleep, dizziness, though does not feel the room spinning. She notes feeling anxious, agitated and unfocused. Review of Systems See HPI for pertinent positives and negatives. A total of ten systems were reviewed and were otherwise negative. Past Medical & Surgical Medical Problems: (1) Deaf (2) Kidney stones (3) Uses hearing aid Surgical Problems: (1) History of cochlear implant Family History Kidney disease Social History Smoking Status: Never Smoker Alcohol Use: none Drug Use: none Marital Status: in relationship Housing Status: lives with family Occupation Status: unemployed Current/Historical Medications Scheduled Famotidine (Pepcid), 20 MG PO BID Allergies Coded Allergies: Reyes (Verified Allergy, Unknown, HIVES, BREATHING PROBLEMS, 02/05/17) Naproxen (Verified Allergy, Unknown, DIFFICULTY BREATHING, 02/05/17) Physical Exam Vital Signs Date Time Temp Pulse Resp B/P (MAP) Pulse Ox O2 Delivery O2 Flow Rate FiO2 02/05/17 14:07 74 16 97/59 97 02/05/17 13:00 81 16 111/63 97 Room Air 02/05/17 11:53 101 20 120/81 100 Room Air 02/05/17 11:42 76 02/05/17 11:25 100 Room Air 02/05/17 10:07 36.5 55 20 123/89 96 Room Air Physical Exam GENERAL: Awake, alert, anxious and uncomfortable appearing, in no acute distress HENT: Normocephalic, atraumatic. Oropharynx dry mm otherwise unremarkable. TM clear. EYES: Normal conjunctiva. Sclera non-icteric. NECK: Supple. No nuchal rigidity. FROM. No JVD. RESPIRATORY: Clear to auscultation. CARDIAC: Regular rate, normal rhythm. Extremities warm and well perfused. Pulses equal. ABDOMEN: Soft, non-distended. No rebound or guarding. No masses. Mild epigastric discomfort. Negative Pimentel's sign. No peritoneal signs. RECTAL: Deferred. MUSCULOSKELETAL: Chest examination reveals no tenderness. The back is symmetrical on inspection without obvious abnormality. There is no CVA tenderness to palpation. No joint edema. LOWER EXTREMITIES: Calves are equal size bilaterally and non-tender. No edema. No discoloration. NEURO: Normal sensorium. No sensory or motor deficits noted. SKIN: No rash or jaundice noted. Medical Decision & Procedures ER Provider Diagnostic Interpretation: Radiology results as stated below per my review and radiologist interpretation: SINGLE VIEW CHEST CLINICAL HISTORY: Atypical chest pain. FINDINGS: An AP, portable, upright chest radiograph is compared to chest x-ray and chest CT dated 01/15/2017. The examination is degraded by portable technique and patient rotation. The cardiomediastinal silhouette is unremarkable. The lungs and pleural spaces are clear. No pneumothorax is seen. The bony thorax is grossly intact. IMPRESSION: No active disease in the chest. Electronically signed by: Luis Enrique Enriquez M.D. 02/05/2017 12:37 PM Dictated Date/Time: 02/05/2017 12:37 PM Laboratory Results 02/05/17 11:35 Red Blood Count 4.42, Mean Corpuscular Volume 90.0, Mean Corpuscular Hemoglobin 30.5, Mean Corpuscular Hemoglobin Concent 33.9, Mean Platelet Volume 9.6, Neutrophils (%) (Auto) 67.1, Lymphocytes (%) (Auto) 27.4, Monocytes (%) (Auto) 4.6, Eosinophils (%) (Auto) 0.5, Basophils (%) (Auto) 0.2, Neutrophils # (Auto) 5.66, Lymphocytes # (Auto) 2.31, Monocytes # (Auto) 0.39, Eosinophils # (Auto) 0.04, Basophils # (Auto) 0.02 02/05/17 11:35 Test 02/05/17 11:35 White Blood Count 8.44 K/uL (4.8-10.8) Red Blood Count 4.42 M/uL (4.2-5.4) Hemoglobin 13.5 g/dL (12.0-16.0) Hematocrit 39.8 % (37-47) Mean Corpuscular Volume 90.0 fL (80-100) Mean Corpuscular Hemoglobin 30.5 pg (25-34) Mean Corpuscular Hemoglobin Concent 33.9 g/dl (32-36) Platelet Count 243 K/uL (130-400) Mean Platelet Volume 9.6 fL (7.4-10.4) Neutrophils (%) (Auto) 67.1 % Lymphocytes (%) (Auto) 27.4 % Monocytes (%) (Auto) 4.6 % Eosinophils (%) (Auto) 0.5 % Basophils (%) (Auto) 0.2 % Neutrophils # (Auto) 5.66 K/uL (1.4-6.5) Lymphocytes # (Auto) 2.31 K/uL (1.2-3.4) Monocytes # (Auto) 0.39 K/uL (0.11-0.59) Eosinophils # (Auto) 0.04 K/uL (0-0.5) Basophils # (Auto) 0.02 K/uL (0-0.2) RDW Standard Deviation 43.8 fL (36.4-46.3) RDW Coefficient of Variation 13.3 % (11.5-14.5) Immature Granulocyte % (Auto) 0.2 % Immature Granulocyte # (Auto) 0.02 K/uL (0.00-0.02) Anion Gap 8.0 mmol/L (3-11) Estimated GFR () 103.6 Estimated GFR (Non- 89.4 BUN/Creatinine Ratio 9.4 (10-20) Calcium Level 9.3 mg/dl (8.5-10.1) Total Bilirubin 0.6 mg/dl (0.2-1) Direct Bilirubin 0.2 mg/dl (0-0.2) Aspartate Amino Transf (AST/SGOT) 16 U/L (15-37) Alanine Aminotransferase (ALT/SGPT) 20 U/L (12-78) Alkaline Phosphatase 45 U/L (45-117) Troponin I < 0.015 ng/ml (0-0.045) Total Protein 7.8 gm/dl (6.4-8.2) Albumin 4.0 gm/dl (3.4-5.0) Lipase 140 U/L (73-393) Laboratory results reviewed by me Medications Administered Medications (Trade) Dose Ordered Sig/Zelda Route Start Time Stop Time Status Last Admin Dose Admin Famotidine (Pepcid 20mg Iv Push) 20 mg NOW STAT IV 02/05/17 11:05 02/05/17 11:21 DC 02/05/17 11:48 20 MG Sodium Chloride 1,000 ml @ 999 mls/hr Q1H1M STAT IV 02/05/17 11:05 02/05/17 12:05 DC 02/05/17 11:48 999 MLS/HR Diphenhydramine HCl (Benadryl Inj) 12.5 mg NOW STAT IV 02/05/17 11:05 02/05/17 11:21 DC 02/05/17 11:50 12.5 MG Ondansetron HCl (Zofran Inj) 4 mg NOW STAT IV 02/05/17 11:20 02/05/17 11:21 DC 02/05/17 11:49 4 MG Al Hydroxide/Mg Hydroxide (Maalox Susp) 30 ml STK-MED ONCE .ROUTE 02/05/17 11:36 02/05/17 11:37 DC 02/05/17 11:36 30 ML Lidocaine HCl (Viscous Lidocaine 2% Soln) 20 ml STK-MED ONCE .ROUTE 02/05/17 11:36 02/05/17 11:37 DC 02/05/17 11:36 10 ML Pantoprazole Sodium (Protonix Tab) 40 mg NOW STAT PO 02/05/17 13:46 02/05/17 13:47 DC 02/05/17 14:07 40 MG ECG Indication: other (ringing in ears) Rate (beats per minute): 71 Rhythm: normal sinus Findings: LBBB, no acute ischemic change, other (Sgarbossa criteria) Change: Similar compared to 01/15/2017. ED Course 1105: The patient was evaluated in room B11. A complete history and physical exam was performed. 1306: I reassessed the patient at this time. She is feeling better and resting comfortably. 1408: I reassessed the patient at this time. She is feeling better and resting comfortably. I discussed the results and treatment plan with the patient. I answered all pertaining questions that she had. She expressed understanding and verbalized agreement. The patient will be discharged home. Medical Decision I reviewed the patient's past medical history, medications, and the nursing notes as described above. Differential diagnoses: gastritis, peptic ulcer, reflux disease, ACS, PNA, bronchitis, dehydration, electrolyte abnormality, and Meniere's disease. The patient is a 37-year-old woman who is hearing impaired with recent cochlear implant 1 month ago presents to emergency department with persistent tenderness and epigastric burning since procedure, and been seen for similar symptoms in the ED as well per history of present illness. On arrival the patient is anxious appearing but in no acute distress. AFVSS. Patient does have mild epigastric discomfort but otherwise no discrete tenderness or peritoneal signs. TMs clear. Patient is neurologically intact. She did have a CT of her head last month as well for her similar symptoms that was unremarkable. 2/2 cochlear implants she is unable to have MRIs. He was given IV fluids and drill and Zofran as well as IV Pepcid with good effect where the patient felt improvement in her tinnitus as well as her burning. Sx most consistent with a gastritis/ulcer/reflux. Labs unremarkable including WBC and Trop within normal limits. EKG unremarkable. The patient has ENT follow-up tomorrow which is the optimal plan for evaluation of her tinnitus. Given the long-standing course of this symptom there is unlikely to be an emergent process at this time. Plan for PCP and ENT follow-up. Findings and plan for follow-up reviewed with patient. Patient agreeable and d/c'd per discharge instructions. Medication Reconcilliation Current Medication List: was personally reviewed by me Blood Pressure Screening Patient's blood pressure: Normal blood pressure Impression Primary Impression: Gastritis Additional Impression: Tinnitus, left ear Scribe Attestation The scribe's documentation has been prepared under my direction and personally reviewed by me in its entirety. I confirm that the note above accurately reflects all work, treatment, procedures, and medical decision making performed by me. Departure Information Dispostion Home / Self-Care Prescriptions Famotidine (PEPCID) 20 Mg Tab 20 MG PO BID for 14 Days, #28 TAB Prov: Alex Piper M.D. 02/05/17 Referrals No Doctor, Assigned (PCP) Forms HOME CARE DOCUMENTATION FORM, IMPORTANT VISIT INFORMATION, WORK / SCHOOL INSTRUCTIONS Patient Instructions ED Gastritis, My [facility], Tinnitus Additional Instructions Please follow up with your primary care physician in the next 1-3 days as well as with your ENT tomorrow as scheudled for re-evaluation. You likely have a gastritis. Otherwise, your exam, EKG, chest xray, bedside gallbladder ultrasound, and lab results did not show signs of an emergent condition at this time. Resume your omeprazole and additionally take Pepcid as directed for addition acid relief. You can try an antihistamine such as your Reina for worsening ear ringing symptoms. Return to the emergency department for worsening symptoms as described in the accompanying instructions. Problem Qualifiers
[2017-02-05 12:01] LABS: ALT/SGPT 20 U/L (12-78); BLOOD UREA NITROGEN 8 mg/dl (7-18); BUN/CREATININE RATIO 9.4 (10-20); CALCIUM 9.3 mg/dl (8.5-10.1); CARBON DIOXIDE 26 mmol/L (21-32); CHLORIDE 105 mmol/L (98-107); CREATININE 0.84 mg/dl (0.60-1.20); GLUCOSE 78 mg/dl (70-99); POTASSIUM 3.5 mmol/L (3.5-5.1); SODIUM 139 mmol/L (136-145)
[2017-02-05 12:06] LABS: ALKALINE PHOSPHATASE 45 U/L (45-117); AST/SGOT 16 U/L (15-37)
--- NOTE | 2017-02-05 12:39 | DIAGNOSTIC IMAGING REPORT ---
SINGLE VIEW CHEST CLINICAL HISTORY: Atypical chest pain. FINDINGS: An AP, portable, upright chest radiograph is compared to chest x-ray and chest CT dated 01/15/2017. The examination is degraded by portable technique and patient rotation. The cardiomediastinal silhouette is unremarkable. The lungs and pleural spaces are clear. No pneumothorax is seen. The bony thorax is grossly intact. IMPRESSION: No active disease in the chest. Electronically signed by: Luis Enrique Enriquez M.D. 02/05/2017 12:37 PM Dictated Date/Time: 02/05/2017 12:37 PM
[2017-02-05] MEDS ORDERED: FAMO20TA9 PO (13:40)
[2017-02-05] MEDS ORDERED: PANTOprazole SOD 40 MG TAB PO STA (13:46)
[2017-02-05 14:07] VITALS: BP 97/59; PULSE 74; O2SAT 97
== END 2017-02-05 14:08 | disposition home or self-care (01) ==
LOC: C.EDB 10:06
DX: K29.70 Gastritis, unspecified, without bleeding (principal); H93.12 Tinnitus, left ear; Z87.442 Personal history of urinary calculi; H91.3 Deaf nonspeaking, not elsewhere classified; Z84.1 Family history of disorders of kidney and ureter

== ENCOUNTER → 2017-04-03 | Outpatient (CLI) | payer OTHER ==
[2017-04-03 13:21] LABS: HEMATOCRIT 39.3 % (37-47); HEMOGLOBIN 13.2 g/dL (12.0-16.0); MEAN CELL VOLUME 89.5 fL (80-100); MEAN CORPUSCULAR HEMOGLOBIN 30.1 pg (25-34); MEAN CORPUSCULAR HGB CONC 33.6 g/dl (32-36); PLATELET COUNT 263 K/uL (130-400); RED CELL DISTRIBUTION WIDTH CV 13.5 % (11.5-14.5); RED CELL DISTRIBUTION WIDTH SD 44.3 fL (36.4-46.3); WHITE BLOOD COUNT 7.57 K/uL (4.8-10.8)
[2017-04-03 14:13] LABS: ALBUMIN 4.1 gm/dl (3.4-5.0); ALT/SGPT 22 U/L (12-78); AST/SGOT 14 U/L (15-37); BLOOD UREA NITROGEN 11 mg/dl (7-18); CARBON DIOXIDE 25 mmol/L (21-32); CREATININE 0.88 mg/dl (0.60-1.20); GLUCOSE 74 mg/dl (70-99); LIPASE 205 U/L (73-393); POTASSIUM 3.5 mmol/L (3.5-5.1); SODIUM 137 mmol/L (136-145)
[2017-04-03 14:15] LABS: ALKALINE PHOSPHATASE 41 U/L (45-117); TOTAL PROTEIN 7.9 gm/dl (6.4-8.2)
== END | disposition home or self-care (01) ==
LOC: C.LAB1850 12:32
PROVIDERS: ATTEND Internal Medicine
DX: R10.13 Epigastric pain (principal)

== ENCOUNTER → 2017-04-12 | Outpatient (CLI) | payer OTHER ==
--- NOTE | 2017-04-12 15:27 | MAMMOGRAPHY REPORT ---
BILATERAL DIGITAL DIAGNOSTIC MAMMOGRAM TOMOSYNTHESIS WITH CAD AND TARGETED BILATERAL ULTRASOUND: 2017 CLINICAL HISTORY: The patient reports that she felt a lump in her left breast for approximately 2 wee ks with some associated tenderness. She also reports that her provider felt a right breast lump duri ng a routine physical exam. The provider note reports a small lump in the right 11:00 subareolar beth ast. TECHNIQUE: Breast tomosynthesis in addition to standard 2D mammography was performed. Current study was also evaluated with a Computer Aided Detection (CAD) system. Bilateral CC and MLO 2-D and tomosy nthesis images were obtained. COMPARISON: Comparison is made to exam dated: 09/10/2011 ultrasound - [facility] BREAST COMPOSITION: The tissue of both breasts is extremely dense, which lowers the sensitivity of m ammography. FINDINGS: A triangle marker torres the site of the palpable lump pointed out by the patient in the le ft lower inner quadrant. There are no suspicious masses, calcifications, or areas of architectural d istortion noted in either breast. A few scattered bilateral punctate benign-appearing calcifications are noted. Targeted ultrasound was performed of the area of the palpable lump and associated pain pointed out by the patient. She could not pinpoint the exact location of the lump on today's exam, however, pointe d to the general region in the left lower inner quadrant. No suspicious masses or other suspicious s onographic abnormalities are seen within this region. Incidentally noted in the left breast at 6:00, 2 cm from the nipple, are 2 adjacent anechoic benign simple cysts, one measuring 9 x 8 mm and the ot her measuring 6 mm. Targeted ultrasound was performed of the area of the palpable lump described by the ordering provider , in the right 11:00 subareolar breast. Sonographically normal tissue is seen in this region, withou t evidence of a mass or other suspicious sonographic abnormality. Incidentally noted in the right ce ntral subareolar breast is a 5 mm anechoic benign simple cyst. Also noted is a 6 mm anechoic benign simple cyst in the right 11:00 breast, 3 cm from the nipple. IMPRESSION: ACR BI-RADS CATEGORY 2: BENIGN, TARGETED ULTRASOUND ACR BI-RADS CATEGORY 2: BENIGN 1. No suspicious mammographic or sonographic abnormality at the site of the palpable left breast lump pointed out by the patient or at the site of the right breast lump felt by the patient's provider. 2. A few small benign cysts were seen bilaterally during the ultrasound exam. There is no mammographic or targeted sonographic evidence of malignancy. Recommend clinical follow-up for bilateral breast lumps, and recommend routine bilateral screening mammograms starting at the age of 40 unless otherwise clinically indicated. The patient has been verbally notified of the results. Approximately 10% of breast cancers are not detected with mammography. A negative mammographic report should not delay biopsy if a clinically suggestive mass is present. Elina Mac M.D. ah/:04/12/2017 12:00:30 Pin Ball Machine Mechanic: Miryam Vitale, [facility] letter sent: Normal 1/2 BI-RADS Code: ACR BI-RADS Category 2: Benign Ultrasound BI-RADS: ACR BI-RADS Category 2: Benign
== END | disposition home or self-care (01) ==
LOC: C.MAMM 10:02
PROVIDERS: ATTEND Physician Assistant
DX: N63.10 Unspecified lump in the right breast, unspecified quadrant (principal); N63.20 Unspecified lump in the left breast, unspecified quadrant; N60.01 Solitary cyst of right breast; N60.02 Solitary cyst of left breast

== ENCOUNTER → 2017-10-02 | Outpatient (CLI) | payer OTHER | END | disposition home or self-care (01) | LOC: C.LAB1850 12:01 | PROVIDERS: ATTEND Internal Medicine Pulmonary Disease | DX: R06.02 Shortness of breath (principal) ==

== ENCOUNTER → 2017-10-09 | Outpatient (CLI) | payer OTHER ==
--- NOTE | 2017-10-09 11:36 | DIAGNOSTIC IMAGING REPORT ---
FUSION CT SINUSES W/O CLINICAL HISTORY: 37 years-old Female presenting with R06.02 Shortness of breath, headaches, postnasal drip. TECHNIQUE: Multidetector CT of the sinuses was performed without the use of intravenous contrast. IV contrast: None. A dose lowering technique was used consistent with the principles of ALARA (as low as reasonably achievable). COMPARISON: CT head from 01/15/2017. CT DOSE (mGy.cm): The estimated cumulative dose is 633.51 mGy.cm. FINDINGS: Delinquency Prevention Social Worker topogram: Cochlear implant noted. Paranasal sinuses clear. Postsurgical changes of right cochlear implant and mastoidectomy. Fluid noted in the mastoid air cells on the right. Left mastoid air cells clear. Middle ears clear. Ossicles intact. The nasopharynx is normal appearing allowing for noncontrast technique. Mild deviation of the nasal septum to the left with slight nonbridging bony spurring. Ostiomeatal units and nasofrontal ethmoidal recesses patent bilaterally. No bony dehiscence of the optic nerves or carotid siphons. No significant anatomic variant. Soft tissues of the face including the orbits normal. Limited evaluation of brain parenchyma normal. IMPRESSION: Right cochlear implant and mastoidectomy with trace right mastoid air cell fluid. Otherwise normal exam. Electronically signed by: Yong Lizarraga M.D. 10/09/2017 11:35 AM Dictated Date/Time: 10/09/2017 11:29 AM
== END | disposition home or self-care (01) ==
LOC: C.CTS 10:35
PROVIDERS: ATTEND Internal Medicine Pulmonary Disease
DX: R09.82 Postnasal drip (principal); R06.02 Shortness of breath; Z96.21 Cochlear implant status; Z90.89 Acquired absence of other organs

== ENCOUNTER 2017-10-26 20:37 | Emergency (ER) | payer OTHER ==
[~2017-10-26] VITALS: Ht 162.6 cm; Wt 55.4 kg
[2017-10-26 20:39] VITALS: PULSE 90; TEMP 36.6; O2SAT 95; Ht 162.6 cm; Wt 55.4 kg
[2017-10-26] MEDS ORDERED: SODIUM CHLORIDE 0.9% 1000ML 1,000 ML IV STA (21:01)
[2017-10-26 21:28] LABS: BASO % 0.3 %; BASO ABS # 0.02 K/uL (0-0.2); EOS % 0.8 %; EOS ABS # 0.06 K/uL (0-0.5); HEMATOCRIT 43.3 % (37-47); HEMOGLOBIN 14.3 g/dL (12.0-16.0); IG# 0.01 K/uL (0.00-0.02); LYMPH % 41.4 %; LYMPH ABS # 3.14 K/uL (1.2-3.4); MEAN CORPUSCULAR HEMOGLOBIN 29.1 pg (25-34); MEAN PLATELET VOLUME 9.6 fL (7.4-10.4); MONO % 7.8 %; MONO ABS # 0.59 K/uL (0.11-0.59); NEUT % 49.6 %; NEUT ABS # 3.77 K/uL (1.4-6.5); PLATELET COUNT 278 K/uL (130-400); RED CELL DISTRIBUTION WIDTH CV 13.6 % (11.5-14.5); RED CELL DISTRIBUTION WIDTH SD 43.9 fL (36.4-46.3); WHITE BLOOD COUNT 7.59 K/uL (4.8-10.8)
--- NOTE | 2017-10-26 21:39 | EMERGENCY ROOM VISIT NOTE ---
History Report prepared by Rebecca: Alexander Melgar Under the Supervision of: Dr. Otoniel Preciado M.D. First contact with patient: 20:49 Chief Complaint: ABDOMINAL PAIN Stated Complaint: HEAD, CHEST, LOWER BACK, STOMACH PAIN Nursing Triage Summary: Patient states "back in January had a cochlear implant. After that everything has been messed up. My symptoms are all the same. I went to pulmonary and GI doctor and no one can figure it out. My whole head is hurting, I think it's from the cochlear. I'm coughing stuff up, my stomach hurts, my lower back is hurting. That has been intermittent since January." History of Present Illness The patient is a 37 year old female who presents to the Emergency Room with complaints of multiple including headache, chest pain and abdominal pain. She describes that her lungs burn when taking a deep breath and that she sometimes gets a pressure or tightness sensation in her chest causing shortness of breath. Her abdominal pain feels like she got punched in the stomach. She also reports having a productive cough especially in the morning and nausea. She denies any blood in urine or stools and fevers. All of these symptoms have been on and off since January 2017 when she got a cochlear implant and she has been here twice in that span of time. She has been to a GI doctor as well but they found nothing. She has an appointment on November 14 with her cochlear doctor. All of this interaction was done with an manager of project management being that the patient is deaf. Source of History: patient, other (Interp[employer] ) Onset: 3 days ago Position: abdomen Quality: pressure, burning Timing: worsening Modifying Factors (Worsening): breathing Associated Symptoms: + headache, + cough, + chest pain, + SOB, + nausea, No vomiting Review of Systems See HPI for pertinent positives and negatives. A total of ten systems were reviewed and were otherwise negative. Past Medical & Surgical Medical Problems: (1) Deaf (2) Kidney stones (3) Uses hearing aid Surgical Problems: (1) History of cochlear implant Family History Kidney disease Social History Smoking Status: Never Smoker Alcohol Use: none Drug Use: none Marital Status: in relationship Housing Status: lives with family Occupation Status: unemployed Current/Historical Medications No Active Prescriptions or Reported Meds Allergies Coded Allergies: Reyes (Verified Allergy, Unknown, HIVES, BREATHING PROBLEMS, 02/05/17) Naproxen (Verified Allergy, Unknown, DIFFICULTY BREATHING, 02/05/17) Physical Exam Vital Signs Date Time Temp Pulse Resp B/P (MAP) Pulse Ox O2 Delivery O2 Flow Rate FiO2 10/26/17 22:21 18 121/71 10/26/17 20:39 36.6 90 18 110/78 95 Room Air Physical Exam Physical Exam GENERAL: She is oriented to person, place, and time. She appears well- developed and well-nourished. She does not appear distressed. Deaf HENT: Exam performed. Head: Normocephalic and atraumatic. Right Ear: External ear normal. No mastoid tenderness. TM pearly and merida Left Ear: External ear normal. No mastoid tenderness. TM pearly and merida Mouth/Throat: The oropharynx is clear and moist. No trismus in the jaw. No dental abscesses or uvula swelling. No oropharyngeal exudate or tonsillar abscesses. EYES: Conjunctivae and EOM are normal. Pupils are equal, round, and reactive to light. Right eye exhibits no discharge. Left eye exhibits no discharge. No scleral icterus. NECK: Normal range of motion. Neck supple. No JVD present. No spinous process tenderness present. No carotid bruit present. No rigidity. No tracheal deviation and normal range of motion present. No Brudzinski's sign and no Kernig 's sign noted. CV: Normal rate, regular rhythm, normal heart sounds and intact distal pulses. There is no peripheral edema. Palpable radial pulses bue. PULM/CHEST: Effort normal and breath sounds normal. No respiratory distress. No stridor. She has no wheezes. She has no rales. Chest Wall: She exhibits no tenderness. ABD: The abdomen is soft. Bowel sounds are normal. She has no distension. No mass is present. There is no tenderness. There is no rebound, no guarding, no Pimentel's sign and no tenderness at McBurney's point. Rovsig negative MUSC/SKEL: Normal range of motion. There is no peripheral edema, tenderness or deformity. LYMPH: No cervical adenopathy. NEURO: She is alert and oriented to person, place, and time. She has normal strength. No cranial nerve deficit or sensory deficit. Coordination and gait normal. GCS eye subscore is 4. GCS verbal subscore is 5. GCS motor subscore is 6. Cerebellar tests wnl. SKIN: Skin is warm and dry. She is not diaphoretic. PSYCH: She has a normal mood and affect. Behavior is normal. Judgment and thought content normal. Medical Decision & Procedures ER Provider Diagnostic Interpretation: Radiology results as stated below per my review and radiologist interpretation: ABDOMEN 2VIEW W/PA CHEST RTN CLINICAL HISTORY: nausea epigastric pain COMPARISON STUDY: 02/05/2017 FINDINGS: The erect chest reveals no evidence of free air. There is no evidence of focal pulmonary consolidation.] Erect and supine views of the abdomen reveal no abnormally dilated loops of large or small bowel. There are no transition zone to indicate bowel obstruction. IMPRESSION: No evidence of bowel obstruction. No evidence of free air. Electronically signed by: Kavon Jones M.D. 10/26/2017 9:58 PM Dictated Date/Time: 10/26/2017 9:57 PM Laboratory Results 10/26/17 21:15 Red Blood Count 4.92, Mean Corpuscular Volume 88.0, Mean Corpuscular Hemoglobin 29.1, Mean Corpuscular Hemoglobin Concent 33.0, Mean Platelet Volume 9.6, Neutrophils (%) (Auto) 49.6, Lymphocytes (%) (Auto) 41.4, Monocytes (%) (Auto) 7.8, Eosinophils (%) (Auto) 0.8, Basophils (%) (Auto) 0.3, Neutrophils # (Auto) 3.77, Lymphocytes # (Auto) 3.14, Monocytes # (Auto) 0.59, Eosinophils # (Auto) 0.06, Basophils # (Auto) 0.02 10/26/17 21:15 Test 10/26/17 21:12 10/26/17 21:15 Urine Color YELLOW Urine Appearance CLEAR (CLEAR) Urine pH 5.0 (4.5-7.5) Urine Specific [place] 1.021 (1.000-1.030) Urine Protein NEG (NEG) Urine Glucose (UA) NEG (NEG) Urine Ketones 1+ (NEG) Urine Occult Blood 1+ (NEG) Urine Nitrite NEG (NEG) Urine Bilirubin NEG (NEG) Urine Urobilinogen NEG (NEG) Urine Leukocyte Esterase NEG (NEG) Urine WBC (Auto) 1-5 /hpf (0-5) Urine RBC (Auto) 0-4 /hpf (0-4) Urine Hyaline Casts (Auto) 1-5 /lpf (0-5) Urine Epithelial Cells (Auto) >30 /lpf (0-5) Urine Bacteria (Auto) NEG (NEG) Urine Test NEG (NEG) White Blood Count 7.59 K/uL (4.8-10.8) Red Blood Count 4.92 M/uL (4.2-5.4) Hemoglobin 14.3 g/dL (12.0-16.0) Hematocrit 43.3 % (37-47) Mean Corpuscular Volume 88.0 fL (80-100) Mean Corpuscular Hemoglobin 29.1 pg (25-34) Mean Corpuscular Hemoglobin Concent 33.0 g/dl (32-36) Platelet Count 278 K/uL (130-400) Mean Platelet Volume 9.6 fL (7.4-10.4) Neutrophils (%) (Auto) 49.6 % Lymphocytes (%) (Auto) 41.4 % Monocytes (%) (Auto) 7.8 % Eosinophils (%) (Auto) 0.8 % Basophils (%) (Auto) 0.3 % Neutrophils # (Auto) 3.77 K/uL (1.4-6.5) Lymphocytes # (Auto) 3.14 K/uL (1.2-3.4) Monocytes # (Auto) 0.59 K/uL (0.11-0.59) Eosinophils # (Auto) 0.06 K/uL (0-0.5) Basophils # (Auto) 0.02 K/uL (0-0.2) RDW Standard Deviation 43.9 fL (36.4-46.3) RDW Coefficient of Variation 13.6 % (11.5-14.5) Immature Granulocyte % (Auto) 0.1 % Immature Granulocyte # (Auto) 0.01 K/uL (0.00-0.02) Anion Gap 10.0 mmol/L (3-11) Est Creatinine Clear Calc Drug Dose 71.5 ml/min Estimated GFR () 90.5 Estimated GFR (Non- 78.1 BUN/Creatinine Ratio 14.2 (10-20) Calcium Level 9.2 mg/dl (8.5-10.1) Total Bilirubin 0.7 mg/dl (0.2-1) Direct Bilirubin 0.2 mg/dl (0-0.2) Aspartate Amino Transf (AST/SGOT) 21 U/L (15-37) Alanine Aminotransferase (ALT/SGPT) 24 U/L (12-78) Alkaline Phosphatase 53 U/L (45-117) Total Protein 8.4 gm/dl (6.4-8.2) Albumin 4.2 gm/dl (3.4-5.0) Lipase 170 U/L (73-393) Laboratory results reviewed by me Medications Administered Medications (Trade) Dose Ordered Sig/Zelda Route Start Time Stop Time Status Last Admin Dose Admin Sodium Chloride 1,000 ml @ 999 mls/hr Q1H1M STAT IV 10/26/17 21:01 10/26/17 22:01 DC 10/26/17 21:21 999 MLS/HR ECG Per My Interpretation Indication: abdominal pain Rate (beats per minute): 64 Rhythm: normal sinus Findings: other (QRS, CO and QTc intervals within normal limits. No ST elevation or depression) ED Course 2048: The patient was evaluated in room A11. A complete history and physical exam was performed. A electrical controls designer was activated and used in order to interact with the patient. 2100: Sodium Chloride 1000ml @ 999mls/hr IV 0: Vital signs stable. Labs and imaging within normal limits. On physical exam, patient has no pain on palpation of the abdomen serial abdominal exams. No signs of meningitis, no meningeal signs. The symptoms have been going on and off since January. She will follow-up with her PCP and with her cochlear implant specialist. DISCHARGE - Plan of care discussed with patient and questions answered. The patient was given both verbal and printed discharge instructions. The patient verbalized understanding and ability to comply. The patient is to seek outpatient follow up as noted in the discharge instructions. The patient verbalized understanding and ability to comply. The patient is discharged in stable condition. The patient was instructed to return for worsening symptoms. Medical Decision Vital signs stable. Labs and imaging within normal limits. On physical exam, patient has no pain on palpation of the abdomen serial abdominal exams. No signs of meningitis, no meningeal signs. The symptoms have been going on and off since January. She will follow-up with her PCP and with her cochlear implant specialist. DISCHARGE - Plan of care discussed with patient and questions answered. The patient was given both verbal and printed discharge instructions. The patient verbalized understanding and ability to comply. The patient is to seek outpatient follow up as noted in the discharge instructions. The patient verbalized understanding and ability to comply. The patient is discharged in stable condition. The patient was instructed to return for worsening symptoms. Medication Reconcilliation Current Medication List: was personally reviewed by me Blood Pressure Screening Patient's blood pressure: Normal blood pressure Impression Primary Impression: Abdominal pain Additional Impression: Chest pain Scribe Attestation The scribe's documentation has been prepared under my direction and personally reviewed by me in its entirety. I confirm that the note above accurately reflects all work, treatment, procedures, and medical decision making performed by me. The chart was completed utilizing [employer] Speech voice recognition software. Grammatical errors, random word insertions, pronoun errors, and incomplete sentences are an occasional consequence of this system due to software limitations, ambient noise, and hardware issues. Any formal questions or concerns about the content, text, or information contained within the body of this dictation should be directly addressed to the physician for clarification. Departure Information Dispostion Home / Self-Care Prescriptions No Active Prescriptions or Reported Meds Referrals Sania Alegria PA-C (PCP) Forms Call Back Authorization, HOME CARE DOCUMENTATION FORM, IMPORTANT VISIT INFORMATION Patient Instructions My [facility] Additional Instructions Follow-up with your cochlear specialist in 1-7 days. Continue taking the antibiotics and medications prescribed to you by your PCP. Problem Qualifiers
[2017-10-26 21:51] LABS: ALBUMIN 4.2 gm/dl (3.4-5.0); CALCIUM 9.2 mg/dl (8.5-10.1); CREATININE 0.94 mg/dl (0.60-1.20); POTASSIUM 3.4 mmol/L (3.5-5.1); TOTAL PROTEIN 8.4 gm/dl (6.4-8.2)
--- NOTE | 2017-10-26 21:59 | DIAGNOSTIC IMAGING REPORT ---
ABDOMEN 2VIEW W/PA CHEST RTN CLINICAL HISTORY: nausea epigastric pain COMPARISON STUDY: 02/05/2017 FINDINGS: The erect chest reveals no evidence of free air. There is no evidence of focal pulmonary consolidation.] Erect and supine views of the abdomen reveal no abnormally dilated loops of large or small bowel. There are no transition zone to indicate bowel obstruction. IMPRESSION: No evidence of bowel obstruction. No evidence of free air. Electronically signed by: Kavon Jones M.D. 10/26/2017 9:58 PM Dictated Date/Time: 10/26/2017 9:57 PM
[2017-10-26 22:21] VITALS: BP 121/71
== END 2017-10-26 22:21 | disposition home or self-care (01) ==
LOC: C.EDB 20:38 → C.EDA 22:21
DX: R10.9 Unspecified abdominal pain (principal); R07.9 Chest pain, unspecified; R51 Headache; R05 Cough; R11.0 Nausea; H91.3 Deaf nonspeaking, not elsewhere classified; Z87.442 Personal history of urinary calculi; Z88.6 Allergy status to analgesic agent; Z91.018 Allergy to other foods